=== PATIENT | female | born 2000 | race Caucasian/White ===

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

== ENCOUNTER 2021-05-06 12:14 | Emergency (ER) | payer MEDICAID ==
[~2021-05-06] VITALS: Ht 177 cm; Wt 58.9 kg
--- NOTE | 2021-05-06 12:36 | ED General ---
General Chief Complaint: COVID19 Suspect/Confirmed Stated Complaint: FEVER/VOMITING/BODY ACHES/RUNNY NOSE Nursing Triage Note: PT AMBULATORY TO ER. PT REPORTS YESTERDAY BEGAN TO EXPERIENCE A RUNNY NOSE, COUGH, FEVER (102), BODY ACHES, BILATERAL EAR PAIN, N/V. DENIES KNOWN COVID EXPOSURES. Source of Information: Patient Exam Limitations: No Limitations (ALLI FORREST APRN) History of Present Illness Date Seen by Provider: May 06, 2021 Time Seen by Provider: 12:36 (ALLI FORREST APRN) Allergies and Home Medications Allergies Coded Allergies: amoxicillin (Unverified Allergy, Unknown, 08/14/17) Patient Home Medication List Baloxavir Marboxil (Xofluza) 40 Mg Tablet, 40 MG PO ONCE Prescribed by: ALLI FORREST on 05/06/21 1329 [ controls] , (Reported) Entered as Reported by: SAMIRA MELENDREZ on 08/18/17 0810 [inhaler] , (Reported) Entered as Reported by: SAMIRA MELENDREZ on 08/18/17 0810 Past Fylxhbw-Whmpcp-Osbjga Hx Patient Social History Tobacco Use?: No Use of E-Cig and/or Vaping dev: No Substance use?: No Alcohol Use?: No Pt feels they are or have been: No (ALLI FORREST APRN) Immunizations Up To Date PED Vaccines UTD: Yes Influenza Vaccine Up-to-Date: No; Not Current (ALLI FORREST APRN) Seasonal Allergies Seasonal Allergies: No (ALLI FORREST APRN) Past Medical History Surgeries: Yes (BROKE ELBOW) Cystectomy, Lumpectomy Respiratory: Yes Asthma Cardiac: No Neurological: No Last Menstrual Period: May 02, 2021 Genitourinary: No Gastrointestinal: No Musculoskeletal: Yes Fractures Endocrine: No HEENT: No Cancer: No Psychosocial: No Integumentary: No Blood Disorders: No (ALLI FORREST APRN) Family Medical History Cancer (ALLI FORREST APRN) Physical Exam Vital Signs Vital Signs - First Documented 05/06/21 12:25 Temp 37.2 Pulse 85 Resp 20 B/P (MAP) 127/82 (97) Pulse Ox 98 O2 Delivery Room Air (KARIE PAREDES MD) Vital Signs Capillary Refill : (ALLI FORREST APRN) Height, Weight, BMI Height: 5'10.00" Weight: 140lbs. 0oz. 63.365800tf; 18.00 BMI Method:Stated (ALLI FORREST APRN) Progress/Results/Core Measures Suspected Sepsis SIRS Temperature: Pulse: 85 Respiratory Rate: 20 Blood Pressure 127 /82 Mean: 97 (ALLI FORREST APRN) Results/Orders Lab Results Laboratory Tests Test 05/06/21 12:33 Range/Units Influenza Type A (RT-PCR) Detected H Not Detecte Influenza Type B (RT-PCR) Not Detected Not Detecte SARS-CoV-2 RNA (RT-PCR) Not Detected Not Detecte (KARIE PAREDES MD) Vital Signs/I&O 05/06/21 05/06/21 05/06/21 12:25 12:47 14:13 Temp 37.2 Pulse 85 96 82 Resp 20 18 18 B/P (MAP) 127/82 (97) 129/84 106/67 Pulse Ox 98 99 99 O2 Delivery Room Air Room Air Room Air (KARIE PAREDES MD) Vital Signs/I&O Capillary Refill : (ALLI FORREST APRN) Blood Pressure Mean: 97 Progress Note : Progress Note Xofluza was not in stock. Prescription was changed to Tamiflu. (KARIE PAREDES MD) Departure Impression Primary Impression: Influenza A Disposition: 01 HOME, SELF-CARE Condition: Improved Departure-Patient Inst. Decision time for Depature: 13:26 (ALLI FORREST APRN) Referrals: VERONICA GUEVARA MD (PCP/Family) Primary Care Physician Patient Instructions: Flu, Adult (DC) Add. Discharge Instructions: Plan: 1. Isolate at home for 5 days or until you are fever free without medication for 24 hours. 2. Drink plenty of fluids to stay hydrated. 3. May take Tylenol 1000mg every 8 hours as needed for fever pain, or you can take Ibuprofen 600mg every 6 hours. Take Ibuprofen with food. 4. Return to ER for any new, concerning, or worsening symptoms. All discharge instructions reviewed with patient and/or family. Voiced understanding. Scripts Oseltamivir Phosphate (Tamiflu) 75 Mg Cap 75 MG PO BID, #10 CAP Prov: KARIE PAREDES MD 05/07/21 ALLI FORREST APRN May 06, 2021 12:36 KARIE PAREDES MD May 07, 2021 09:17
[2021-05-06] MEDS ORDERED: ONDANSETRON 4 MG/2 ML (SDV) Z0FRAN IVP ONE (13:00)
[2021-05-06] MEDS ORDERED: KETOROLAC 30 MG/ML VIAL IVP ONE (13:00)
[2021-05-06] MEDS ORDERED: NS IV 1000 ML 1,000 ML IV ONE (13:00)
[2021-05-06] MEDS ORDERED: BALO40TA PO (13:29)
[2021-05-06 14:13] VITALS: BP 106/67
[2021-05-07] MEDS ORDERED: OSLT75C PO (09:13)
== END 2021-05-06 14:13 | disposition home or self-care (01) ==
LOC: EDUNIT# 12:14 → ER 12:16
DX: J10.1 Influenza due to other identified influenza virus with other respiratory manifestations (principal); J45.909 Unspecified asthma, uncomplicated; Z20.822 Contact with and (suspected) exposure to COVID-19
CPT/HCPCS: 87636